=== PATIENT | female | born 1930 | race Caucasian/White ===

== ENCOUNTER 2016-10-29 19:04 | Emergency (ER) | payer OTHER, MEDICARE ==
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
== END 2016-10-29 21:50 | disposition home or self-care (01) ==
LOC: CED 19:04
DX: S00.93XA Contusion of unspecified part of head, initial encounter (principal); V43.62XA Car passenger injured in collision with other type car in traffic accident, initial encounter; Y92.410 Unspecified street and highway as the place of occurrence of the external cause
CPT/HCPCS: 70450; 72125; 99284

== ENCOUNTER → 2017-04-22 | Outpatient (CLI) | payer MEDICARE ==
--- NOTE | ~2017-04-22 | CR63 ---
[facility]. [facility] A Service of [facility] RADIOLOGY TEXT RESULTS PATIENT: UMA ALVARADO LOCATION: [facility] : [birth year] UNIT #: [id number] AGE: [address]: Alton Ch MD SEX: F ORDER DR: [id number] [place] [id number] O MR#: [id number] Acc #: [id number] NAME: UMA ALVARADO : 1930 SEX: F STUDY DATE/TIME: 04/22/2017 14:18 UNIT: [facility] ROOM: STUDY DESCRIPTION: CR Chest 2 View Attending Physician: Alton Ch M.D. Referring Physician: Alton Ch M.D. Ordering Physician: Alton Ch M.D. Primary Care Physician: Alton Ch M.D. MEDICAL IMAGING REPORT This report is preliminary unless electronic signature is present. EXAM Chest x-ray 04/22 INDICATIONS Shortness of air chronically. History of colon and breast cancer and smoking. FINDINGS Two views of the chest compared with 06/19/2016. Heart size is normal. Patient is status post CABG. Thoracic aorta is tortuous. Lungs are emphysematous but clear except for granulomatous calcification. Patient has a left mastectomy and axillary node dissection. Aortic stent graft noted in the abdomen. IMPRESSION COPD with postop change as above. No acute findings in the chest. Dictated by... Karson Waite Jr., M.D. THIS IS AN ELECTRONICALLY VERIFIED REPORT Karson Waite Jr., M.D. at 04/23/2017 3:38 PM MARY/juancarlos TD: 04/23/2017 13:44 JOB #: [id number] MEDICAL IMAGING REPORT Page 1 of 1
--- NOTE | ~2017-04-22 | EKG ---
PATIENT: UMA ALVARADO UNIT #: [id number] Ventricular Rate: 52 BPM Atrial Rate: 52 BPM P-R Interval: 180 ms QRS Duration: 148 ms Q-T Interval: 494 ms QTC Calculation(Bezet): 459 ms P Vesper: 83 degrees Calculated R Vesper: -45 degrees Calculated T Vesper: 100 degrees Diagnosis Line: Sinus bradycardia with Premature atrial complexes Diagnosis Line: Left axis deviation Diagnosis Line: Left bundle branch block Diagnosis Line: Abnormal ECG Diagnosis Line: When compared with ECG of 08-FEB-2013 13:58, Diagnosis Line: Premature atrial complexes are now Present Diagnosis Line: Left bundle branch block is now Present Diagnosis Line: Confirmed by AVIS HAN MD ([id number]) on Diagnosis Line: 04/25/2017 10:41:17 AM INTERPRETING MD: GUILLE SUTTON
[2017-04-22 14:24] LABS: HEMATOCRIT 43.7 % (35.0-45.0); HEMOGLOBIN 14.5 gm/dL (12.0-16.0); MEAN CELL VOLUME 91.9 FL (83-96); MEAN CORPUSCULAR HEMOGLOBIN 30.6 PG (28-34); MEAN CORPUSCULAR HGB CONC 33.3 g/dL (30-36); MEAN PLATELET VOLUME 7.9 FL (6.5-11.5); RED BLOOD COUNT 4.75 X10e (3.90-5.30); RED CELL DISTRIBUTION WIDTH 14.7 % (11.0-15.5)
[2017-04-22 15:27] LABS: ALBUMIN SERUM 3.7 g/dL (3.5-5.0); BILIRUBIN,TOTAL 0.6 mg/dL (0.2-2.0); BUN/CREATININE RATIO 18.46; CALCIUM SERUM 8.7 mg/dL (8.4-10.2); CREATININE SERUM 1.3 mg/dL (0.6-1.4); GLOM FILT RATE Estimated 36.3 mL/min (>60); POTASSIUM 4.6 mmol/L (3.5-5.1); PROTEIN TOTAL SERUM 6.5 g/dL (6.0-8.3)
== END | disposition home or self-care (01) ==
LOC: SEKG 13:53
PROVIDERS: Internal Medicine
DX: I25.10 Atherosclerotic heart disease of native coronary artery without angina pectoris (principal); Z80.0 Family history of malignant neoplasm of digestive organs; J44.9 Chronic obstructive pulmonary disease, unspecified
CPT/HCPCS: 36415; 71020; 80053; 80061; 82378; 84443; 85027; 93005